=== PATIENT | female | born 1990 | race American Indian/Alaskan Native ===

== ENCOUNTER 2017-06-07 12:58 | Emergency (ER) | payer MEDICAID, OTHER ==
[2017-06-07] MEDS ORDERED: ZOFRAN IV ONE (13:32)
[2017-06-07] MEDS ORDERED: MORPHINE IV ONE (13:32)
[2017-06-07] MEDS ORDERED: MORPHINE ONE ×2 (13:35→13:44)
[2017-06-07] MEDS ORDERED: TORADOL IM ONE (14:43)
[2017-06-07 15:17] VITALS: BP 101/48
--- NOTE | 2017-06-07 15:27 | XRay Report ---
FINAL REPORT PROCEDURE: XR SHOULDER 2+V RT TECHNIQUE: Right shoulder, three views HISTORY: right shoulder pain suspected dislocation COMPARISON: No prior studies are available for comparison. FINDINGS: There is separation of the acromioclavicular joint, with superior displacement of the distal clavicle, by 12 millimeters. No fracture is seen. The glenohumeral joint appears intact. IMPRESSION: Acromioclavicular joint separation
--- NOTE | 2017-06-07 16:04 | Emergency Department Report ---
HPI - General Chief Complaint: Shoulder Injury Time Seen by Provider: 06/07/17 13:32 - HPI HPI: The patient is a 27-year-old female whom presents for evaluation of right shoulder pain. The patient states that she tripped and sustained a mechanical fall down approximately 4-5 stairs one to 2 hours prior to arrival. Landed on her right shoulder. She complains of constant sharp pain in the shoulder since the accident, 12/03 in severity, exacerbated with attempts at movement of the right arm at the shoulder joint. She denies, injury to the head, headache, neck pain, chest pain, back pain, abdominal pain, dyspnea, syncope. ED Past Medical Hx - Past Medical History Previous Medical History?: No - Surgical History Past Surgical History?: No - Social History Smoking Status: Never Smoker Substance Use Type: None - Medications Home Medications: Home Medications Medication Instructions Recorded Confirmed Last Taken Type Ibuprofen [Motrin] 800 mg PO Q8HR PRN #15 tablet 06/07/17 Unknown Rx traMADol [Ultram 50 MG tab] 50 mg PO Q6HR PRN #15 tablet 06/07/17 Unknown Rx ED Review of Systems ROS: Stated complaint: RIGHT SHOULDER PAIN Other details as noted in HPI Constitutional: denies: fever ENT: denies: throat or neck pain Respiratory: denies: cough, shortness of breath Cardiovascular: denies: chest pain Endocrine: denies unexplained weight loss or gain Gastrointestinal: denies: abdominal pain, nausea Genitourinary: denies: dysuria Musculoskeletal: reports right shoudler pain denies: leg swelling Skin: denies: rash Neurological: denies: headache Hematological/Lymphatic: denies: easy bleeding or easy bruising Psych: denies sadness or hopelessness Physical Exam - Physical Exam Vital Signs: Vital Signs 06/07/17 06/07/17 06/07/17 12:59 14:16 14:29 Temperature 98.6 F Pulse Rate 90 Respiratory 18 18 18 Rate Blood Pressure 116/72 Blood Pressure [Left] O2 Sat by Pulse 98 100 Oximetry 06/07/17 06/07/17 14:47 15:00 Temperature 98.2 F Pulse Rate 63 Respiratory 18 18 Rate Blood Pressure Blood Pressure 101/48 [Left] O2 Sat by Pulse 99 Oximetry Physical Exam: General: well-nourished, well-developed, no acute distress Head: Normocephalic, atraumatic Eyes: normal sclera ENT: Mucous membranes are pink and moist Neck: trachea midline, neck supple, No neck stiffness, no cervical adenopathy Respiratory: Breath sounds equal bilaterally, no wheezing, rales, or rhonchi Cardio: S1 and S2 present, no murmurs, rubs, gallops, capillary refill is brisk Abdomen: Normoactive bowel sounds, soft abdomen, no rigidity, no guarding or rebound tenderness Musc: Inspection of the shoulder, elbow, and distal arm are unremarkable, there is no redness, ecchymosis, swelling, or warmth present to the shoulder, elbow, or wrist, normal active and passive range of motion to the shoulder and elbow are intact, tenderness to palpation present overlying the AC joint, compartments in the arm are soft and pliable, no sensory or motor deficits to the right arm distal to the shoulder joint , distal pulses intact, capillary refill is brisk. No pitting edema Skin: No rash Neuro: no facial drooping, normal speech Psych: Normal affect ED Course Vital Signs 06/07/17 06/07/17 06/07/17 12:59 14:16 14:29 Temperature 98.6 F Pulse Rate 90 Respiratory 18 18 18 Rate Blood Pressure 116/72 Blood Pressure [Left] O2 Sat by Pulse 98 100 Oximetry 06/07/17 06/07/17 14:47 15:00 Temperature 98.2 F Pulse Rate 63 Respiratory 18 18 Rate Blood Pressure Blood Pressure 101/48 [Left] O2 Sat by Pulse 99 Oximetry ED Medical Decision Making - Medical Decision Making The patient was seen and examined by myself. The patient is placed on a cardiac cath lab radiology technologist and continuous pulse ox. On initial evaluation, the patient was found to be in no distress. Evaluation orders were placed. The patient is given an IM dose of pain medicine. X-ray of the right shoulder reveals an acromioclavicular separation, and otherwise is negative for fracture or other dislocation. The patient is placed in a shoulder sling. The patient was reevaluated and remains with intact sensation, motor function, and pulses in the right arm distal to the shoulder joint. The patient is stable for discharge with outpatient follow-up. The patient is given follow-up and return instructions. The patient expressed understanding and agreed with the plan. The patient is discharged in stable condition. Critical care attestation.: If time is entered above; I have spent that time in minutes in the direct care of this critically ill patient, excluding procedure time. ED Disposition Clinical Impression: Acute pain of right shoulder due to trauma Sprain of acromioclavicular ligament of right shoulder Qualifiers: Encounter type: initial encounter Qualified Code(s): S43.51XA - Sprain of right acromioclavicular joint, initial encounter Disposition: TO HOME OR SELFCARE Is pt being admited?: No Does the pt Need Aspirin: No Condition: Stable Instructions: Acromioclavicular Separation (ED), Arthralgia (ED), Shoulder Sprain (ED) Referrals: AMRITA COATES MD [Staff Physician] - 3-5 Days Time of Disposition: 16:04
== END 2017-06-07 16:25 | disposition home or self-care (01) ==
LOC: ED 12:58
DX: S43.51XA Sprain of right acromioclavicular joint, initial encounter (principal); W01.0XXA Fall on same level from slipping, tripping and stumbling without subsequent striking against object, initial encounter; Y93.89 Activity, other specified; Y99.8 Other external cause status; Y92.89 Other specified places as the place of occurrence of the external cause
CPT/HCPCS: 73030; 96372; 96374; 96375; 99284; J1885; J2270; J2405